=== PATIENT | male | born 1955 | race Caucasian/White ===

== ENCOUNTER → 2019-12-11 | Outpatient (CLI) | payer MEDICARE ==
[~2019-12-11] MED LIST: ACET325T26 PO; AMOX-291 PO; ASCO10004 PO; ASPI-496 PO; ATOR20TA37 PO; BIOT1TAB2 PO; CALC1CAP8 PO; CANA100T PO; CARV3.1212 PO; FINA5TAB4 PO; FURO20TA3 PO; INSU100C5 SQ-INSULIN; LACT10SO24 PO; MAGN70TA2 PO; MELA5TAB14 PO; NAPR220C2 PO; OMEP-110 PO; POLY17PO5 PO; POTA10TA5 PO; PRAS10TA4 PO; SUCR1TAB33 PO; TAMS-11 PO; [UNRECOGNIZED DRUG - CODE] PO; [UNRECOGNIZED DRUG - OTHER] PO
== END | disposition home or self-care (01) ==
LOC: ROC 08:31
PROVIDERS: ATTEND Radiology Radiation Oncology
DX: C48.0 Malignant neoplasm of retroperitoneum (principal)
CPT/HCPCS: 99214; G0463

== ENCOUNTER 2019-12-31 18:23 | Inpatient (IN) | payer MEDICARE ==
[~2019-12-31] VITALS: Ht 172.7 cm; Wt 74.3 kg
[2019-12-31] MEDS ORDERED: VANCOMYCIN PER PHARMACY MC ONE (19:00)
[2019-12-31] MEDS ORDERED: PIPERACILLIN/TAZO/PMX 3.375GM 50 ML IVPB ONE (19:00)
[2019-12-31] MEDS ORDERED: PLEASE ENTER HEIGHT AND WEIGHT MC SCH (19:00)
[2019-12-31] MEDS ORDERED: PIPERACILLIN/TAZO/PMX 3.375GM 50 ML ONE (19:20)
[2019-12-31 19:30] LABS: ALANINE AMINOTRANSFERASE 19 U/L (12-78); ALBUMIN 1.2 g/dL (3.4-5.0); ANION GAP 8 mmol/L (5-15); CALCIUM 8.2 mg/dL (8.5-10.1); CHLORIDE 91 mmol/L (98-107); CREATININE 0.54 mg/dL (0.7-1.3)
[2019-12-31] MEDS ORDERED: VANCOMYCIN 1,200 MG in SODIUM CHLORIDE 0.9% 250 ML IV ONE (19:30)
[2019-12-31 19:32] LABS: ALKALINE PHOSPHATASE 98 U/L (45-117); BILIRUBIN,TOTAL 0.7 mg/dL (0.2-1.0); TOTAL PROTEIN 5.5 g/dL (6.4-8.2)
--- NOTE | 2019-12-31 19:35 | NUR ---
PT UNABLE TO VERIFY MED REC. WILL BRING LIST TOMORROW
--- NOTE | 2019-12-31 19:40 | NUR ---
REPORT RECEIVED FROM GAURI BRUMFIELD.
[2019-12-31 19:51] LABS: BASOPHILS # (AUTO) 0.01 x10^3/uL (0-0.1); BASOPHILS % (AUTO) 0 % (0-1); EOSINOPHILS # (AUTO) 0.05 x10^3/uL (0-0.4); EOSINOPHILS % (AUTO) 1 % (1-7); LYMPHOCYTES # (AUTO) 0.88 x10^3/uL (1-3.4); LYMPHOCYTES % (AUTO) 13 % (22-44); MD SCAN; MEAN CORPUSCULAR HEMOGLOBIN 25.4 pg (27.5-34.5); MEAN CORPUSCULAR HGB CONC 31.9 g/dL (33.2-36.2); MEAN CORPUSCULAR VOLUME 79.4 fL (81-97); MEAN PLATELET VOLUME 6.4 fL (7.4-10.4); MONOCYTES # (AUTO) 0.47 x10^3/uL (0.2-0.8); MONOCYTES % (AUTO) 7 % (2-9); NEUTROPHILS # (AUTO) 5.47 x10^3/uL (1.8-6.8); NEUTROPHILS % (AUTO) 80 % (42-75); PLATELET COUNT 473 x10^3/uL (130-400); RED BLOOD COUNT 2.93 x10^6/uL (4.38-5.82); RED CELL DISTRIBUTION WIDTH 23.1 % (9.4-14.8)
--- NOTE | 2019-12-31 20:00 | NUR ---
RECEIVED PHONE CALL FROM LAB. LACTIC CSF CANCELLED DUE TO LACK OF SPECIMEN FOR SEND OUT.
--- NOTE | 2019-12-31 20:09 | NUR ---
BREAK RN: PT SLEEPING, RESPIRATIONS EVEN AND UNLABORED. NO DISTRESS NOTED. NSR ON THE MONITOR. WILL CONTINUE TO MONITOR.
--- NOTE | 2019-12-31 20:29 | NUR ---
MED SAMANTHA FROM PHARMACY.
--- NOTE | 2019-12-31 20:29 | NUR ---
BLOOD REQ FROM PHARMACY.
--- NOTE | 2019-12-31 20:48 | NUR ---
ADMITTING PROVIDER, IN ROOM FOR EVAL.
[2019-12-31 20:53] VITALS: BP 104/59
[2019-12-31 21:08] VITALS: BP 108/65
--- NOTE | 2019-12-31 21:27 | NUR ---
REPORT GIVEN TO THEO BRUMFIELD. PT IS READY FOR TRANSPORT.
[2019-12-31] MEDS ORDERED: ONDANSETRON 2MG/ML, 2ML IVPush PRN (21:30)
[2019-12-31] MEDS ORDERED: ACETAMINOPHEN 325 MG TABLET PO PRN ×2 (21:30→22:00)
[2019-12-31] MEDS ORDERED: CEFTRIAXONE 500 MG in DEXTROSE 5% 50 ML IV SCH (21:30)
[2019-12-31] MEDS ORDERED: DOCUSATE 100 MG CAPSULE PO PRN (21:30)
[2019-12-31] MEDS ORDERED: OXYcodone IR 5MG TABLET PO PRN (21:30)
[2019-12-31] MEDS ORDERED: VANCOMYCIN PER PHARMACY MC PRN (21:30)
--- NOTE | 2019-12-31 21:38 | NUR ---
Carmencita dailey in EDM - 12/31/19 at 2141 by MICHELLEAGA PT BP 201/97. MEDICATED PER EMILY.
[2019-12-31] MEDS ORDERED: LACTULOSE 10 GM/15 ML UDC PO PRN (22:00)
[2019-12-31] MEDS ORDERED: MELATONIN 5 MG TABLET PO PRN (22:00)
[2019-12-31] MEDS ORDERED: POLYETHYLENE GLYCOL 17 GM PACKET PO PRN (22:00)
--- NOTE | 2019-12-31 22:13 | NUR ---
PT TRANSFERED TO FLOOR. UPDATED THEO BRUMFIELD ON TRANSFUSION VS SCHEDULE.
[2019-12-31 22:22] VITALS: BP_SYST 95; BP_SYST 96; BP_DIAS 62
[2019-12-31] MEDS ORDERED: PHARMACOKINETIC MONITORING MC PRN (22:30)
[2019-12-31] MEDS: CEFTRIAXONE PMX 1GM/50ML 50 ML IV SCH (23:01)
[2020-01-01 02:31] VITALS: BP 98/63
[2020-01-01] MEDS: OMEPRAZOLE 20 MG CAPSULE.DR PO SCH ×2 (05:12→16:28)
[2020-01-01 05:38] LABS: BASOPHILS # (AUTO) 0.05 x10^3/uL (0-0.1); BASOPHILS % (AUTO) 1 % (0-1); EOSINOPHILS # (AUTO) 0.03 x10^3/uL (0-0.4); EOSINOPHILS % (AUTO) 1 % (1-7); LYMPHOCYTES # (AUTO) 0.84 x10^3/uL (1-3.4); LYMPHOCYTES % (AUTO) 13 % (22-44); MD NO; MEAN CORPUSCULAR HGB CONC 32.3 g/dL (33.2-36.2); MEAN CORPUSCULAR VOLUME 80.4 fL (81-97); MEAN PLATELET VOLUME 6.4 fL (7.4-10.4); MONOCYTES # (AUTO) 0.45 x10^3/uL (0.2-0.8); MONOCYTES % (AUTO) 7 % (2-9); NEUTROPHILS # (AUTO) 4.99 x10^3/uL (1.8-6.8); NEUTROPHILS % (AUTO) 79 % (42-75); PLATELET COUNT 412 x10^3/uL (130-400); RED BLOOD COUNT 3.14 x10^6/uL (4.38-5.82); RED CELL DISTRIBUTION WIDTH 20.3 % (9.4-14.8)
[2020-01-01 05:41] LABS: ANION GAP 9 mmol/L (5-15); CALCIUM 7.9 mg/dL (8.5-10.1); CHLORIDE 94 mmol/L (98-107)
[2020-01-01 05:44] LABS: CREATININE 0.39 mg/dL (0.7-1.3)
[2020-01-01 07:56] VITALS: BP 109/70
[2020-01-01] MEDS: MAGNESIUM CHLORIDE 64 MG TABLET.DR PO SCH (08:15)
[2020-01-01] MEDS: ATORVASTATIN 20 MG TABLET PO SCH (08:15)
[2020-01-01] MEDS: POTASSIUM CHLORIDE 10 MEQ TABLET.ER PO SCH (08:15)
[2020-01-01] MEDS: SUCRALFATE 1 GM TABLET PO SCH ×2 (08:16→19:58)
[2020-01-01] MEDS: INSULIN LISPRO 100 UNITS/ML, PEN SQ-INSULIN SCH ×4 (08:16→19:58)
[2020-01-01] MEDS: CALCIUM/VITAMIN D3 250-125 TABLET PO SCH (08:18)
[2020-01-01 14:02] VITALS: BP 116/68
[2020-01-01] MEDS ORDERED: VANCOMYCIN 1,200 MG in SODIUM CHLORIDE 0.9% 250 ML IV SCH (15:00)
[2020-01-01] MEDS: CARVEDILOL 3.125 MG TABLET PO SCH (18:17)
[2020-01-01 19:32] VITALS: BP 104/67
[2020-01-01] MEDS: FINASTERIDE 5 MG TABLET PO SCH (19:57)
[2020-01-01] MEDS: TAMSULOSIN 0.4 MG CAP.ER.24H PO SCH (19:58)
[2020-01-01] MEDS: CEFTRIAXONE PMX 1GM/50ML 50 ML IV SCH (22:54)
[2020-01-02 03:20] VITALS: BP 103/65
[2020-01-02] MEDS: OMEPRAZOLE 20 MG CAPSULE.DR PO SCH ×2 (06:18→17:08)
[2020-01-02] MEDS: CARVEDILOL 3.125 MG TABLET PO SCH ×2 (06:19→18:22)
[2020-01-02 06:29] VITALS: BP 100/66
[2020-01-02] MEDS ORDERED: ACETAMINOPHEN 325 MG TABLET PO PRN (08:00)
[2020-01-02] MEDS ORDERED: OXYcodone IR 5MG TABLET PO PRN (08:00)
[2020-01-02] MEDS: MAGNESIUM CHLORIDE 64 MG TABLET.DR PO SCH (08:56)
[2020-01-02] MEDS: LACTOBACILLUS CHEW TABLET PO SCH ×3 (08:56→21:38)
[2020-01-02] MEDS: INSULIN LISPRO 100 UNITS/ML, PEN SQ-INSULIN SCH ×4 (08:56→21:39)
[2020-01-02] MEDS: POTASSIUM CHLORIDE 10 MEQ TABLET.ER PO SCH (08:56)
[2020-01-02] MEDS: CALCIUM/VITAMIN D3 250-125 TABLET PO SCH (08:56)
[2020-01-02] MEDS: ATORVASTATIN 20 MG TABLET PO SCH (08:57)
[2020-01-02] MEDS: SUCRALFATE 1 GM TABLET PO SCH ×2 (08:57→21:38)
[2020-01-02] MEDS ORDERED: FUROSEMIDE 20 MG TABLET PO SCH (09:00)
[2020-01-02] MEDS: VANCOMYCIN 1,400 MG in SODIUM CHLORIDE 0.9% 250 ML IV SCH (11:08)
[2020-01-02 12:08] VITALS: BP 92/58
[2020-01-02 19:45] VITALS: BP 108/68
[2020-01-02] MEDS: FINASTERIDE 5 MG TABLET PO SCH (21:38)
[2020-01-02] MEDS: TAMSULOSIN 0.4 MG CAP.ER.24H PO SCH (21:38)
[2020-01-02] MEDS: CEFTRIAXONE PMX 1GM/50ML 50 ML IV SCH (22:36)
[2020-01-03 01:07] VITALS: BP 93/58
[2020-01-03] MEDS: OMEPRAZOLE 20 MG CAPSULE.DR PO SCH ×2 (04:29→16:20)
[2020-01-03] MEDS: CARVEDILOL 3.125 MG TABLET PO SCH (04:30)
[2020-01-03] MEDS: VANCOMYCIN 1,400 MG in SODIUM CHLORIDE 0.9% 250 ML IV SCH (04:30)
[2020-01-03 04:51] LABS: BASOPHILS % (AUTO) 0 % (0-1); EOSINOPHILS # (AUTO) 0.09 x10^3/uL (0-0.4); EOSINOPHILS % (AUTO) 1 % (1-7); LYMPHOCYTES # (AUTO) 0.87 x10^3/uL (1-3.4); LYMPHOCYTES % (AUTO) 14 % (22-44); MD NO; MEAN CORPUSCULAR HEMOGLOBIN 25.6 pg (27.5-34.5); MEAN CORPUSCULAR HGB CONC 31.6 g/dL (33.2-36.2); MEAN CORPUSCULAR VOLUME 80.8 fL (81-97); MEAN PLATELET VOLUME 5.9 fL (7.4-10.4); MONOCYTES # (AUTO) 0.52 x10^3/uL (0.2-0.8); MONOCYTES % (AUTO) 8 % (2-9); NEUTROPHILS % (AUTO) 77 % (42-75); PLATELET COUNT 444 x10^3/uL (130-400); RED BLOOD COUNT 3.08 x10^6/uL (4.38-5.82); RED CELL DISTRIBUTION WIDTH 21.6 % (9.4-14.8)
[2020-01-03 05:06] LABS: % IRON SATURATION 23 % (20-55); ANION GAP 6 mmol/L (5-15); CALCIUM 8.1 mg/dL (8.5-10.1); CHLORIDE 97 mmol/L (98-107); CREATININE 0.39 mg/dL (0.7-1.3); IRON LEVEL 20 mcg/dL (65-175); TOTAL IRON BINDING CAPACITY 87 mcg/dL (250-450)
[2020-01-03 05:07] LABS: VANCOMYCIN,TROUGH 11.1 mcg/mL (5.0-10.0)
[2020-01-03 07:41] VITALS: BP 94/60
[2020-01-03] MEDS: LACTOBACILLUS CHEW TABLET PO SCH ×3 (07:53→20:58)
[2020-01-03] MEDS: CALCIUM/VITAMIN D3 250-125 TABLET PO SCH (07:53)
[2020-01-03] MEDS: MAGNESIUM CHLORIDE 64 MG TABLET.DR PO SCH (07:53)
[2020-01-03] MEDS: POTASSIUM CHLORIDE 10 MEQ TABLET.ER PO SCH (07:53)
[2020-01-03] MEDS: SUCRALFATE 1 GM TABLET PO SCH ×2 (07:53→20:58)
[2020-01-03] MEDS: ATORVASTATIN 20 MG TABLET PO SCH (07:53)
[2020-01-03] MEDS: INSULIN LISPRO 100 UNITS/ML, PEN SQ-INSULIN SCH ×4 (07:54→21:00)
[2020-01-03] MEDS ORDERED: SODIUM CHLORIDE 0.9% 1,000 ML IV SCH (08:00)
[2020-01-03] MEDS: SODIUM CHLORIDE 0.9% 1,000 ML IV SCH ×2 (08:05→22:47)
[2020-01-03 10:33] LABS: OCCULT BLOOD POSITIVE (NEGATIVE)
[2020-01-03 12:46] VITALS: BP 95/60
[2020-01-03 18:25] VITALS: BP 111/71
[2020-01-03] MEDS: TAMSULOSIN 0.4 MG CAP.ER.24H PO SCH (20:58)
[2020-01-03] MEDS: FINASTERIDE 5 MG TABLET PO SCH (20:58)
[2020-01-03] MEDS ORDERED: CARVEDILOL 3.125 MG TABLET PO SCH (21:00)
[2020-01-04 01:55] VITALS: BP 102/60
[2020-01-04 05:51] LABS: ANION GAP 5 mmol/L (5-15); CALCIUM 8.2 mg/dL (8.5-10.1); CHLORIDE 99 mmol/L (98-107)
[2020-01-04 05:52] LABS: CREATININE 0.31 mg/dL (0.7-1.3)
[2020-01-04] MEDS: OMEPRAZOLE 20 MG CAPSULE.DR PO SCH (06:12)
[2020-01-04 06:33] VITALS: BP 94/59
[2020-01-04] MEDS: MAGNESIUM CHLORIDE 64 MG TABLET.DR PO SCH (08:30)
[2020-01-04] MEDS: LACTOBACILLUS CHEW TABLET PO SCH (08:30)
[2020-01-04] MEDS: POTASSIUM CHLORIDE 10 MEQ TABLET.ER PO SCH (08:30)
[2020-01-04] MEDS: INSULIN LISPRO 100 UNITS/ML, PEN SQ-INSULIN SCH ×2 (08:30→13:19)
[2020-01-04] MEDS: ATORVASTATIN 20 MG TABLET PO SCH (08:31)
[2020-01-04] MEDS: SUCRALFATE 1 GM TABLET PO SCH (08:31)
[2020-01-04] MEDS: CALCIUM/VITAMIN D3 250-125 TABLET PO SCH (08:31)
[2020-01-04] MEDS ORDERED: ACID1TAB7 PO (09:32)
[2020-01-04 12:28] VITALS: BP 95/58
[2020-01-04] MEDS: SODIUM CHLORIDE 0.9% 1,000 ML IV SCH (12:41)
== END 2020-01-04 14:45 | disposition home health service (06) | DRG 843 ==
LOC: ED 18:51 → EDIP 20:15 → 3WST 21:58 → 4EST 01-01 21:48
PROVIDERS: ADMIT Family Medicine; ATTEND Internal Medicine
PROC: 30233N1 Transfusion of Nonautologous Red Blood Cells into Peripheral Vein, Percutaneous Approach (ICD-10-PCS; principal; 2019-12-31)
DX: C48.0 Malignant neoplasm of retroperitoneum (principal); R65.11 Systemic inflammatory response syndrome (SIRS) of non-infectious origin with acute organ dysfunction; E87.1 Hypo-osmolality and hyponatremia; D62 Acute posthemorrhagic anemia; R50.81 Fever presenting with conditions classified elsewhere; D63.8 Anemia in other chronic diseases classified elsewhere; E11.65 Type 2 diabetes mellitus with hyperglycemia; E78.5 Hyperlipidemia, unspecified; E83.51 Hypocalcemia; G47.00 Insomnia, unspecified; I10 Essential (primary) hypertension; I25.10 Atherosclerotic heart disease of native coronary artery without angina pectoris; I25.5 Ischemic cardiomyopathy; Z20.828 Contact with and (suspected) exposure to other viral communicable diseases; I45.10 Unspecified right bundle-branch block; N40.0 Benign prostatic hyperplasia without lower urinary tract symptoms; Z86.011 Personal history of benign neoplasm of the brain; Z87.891 Personal history of nicotine dependence; Z85.89 Personal history of malignant neoplasm of other organs and systems; Z88.8 Allergy status to other drugs, medicaments and biological substances
CPT/HCPCS: 36415; 36430; 80048; 80053; 80202; 82272; 82330; 82962; 83036; 83540; 83550; 83605; 83735; 84100; 84145; 85025; 86850; 86900; 86923; 87040; 93005; 96365; 99285; 99291; G0378; J0696; J2543; J3370; J1815; J7030; J7050; P9016; U0001